=== PATIENT | male | born 1955 | race Two or more races ===

== ENCOUNTER 2018-04-15 11:48 | Inpatient (IN) | payer MEDICARE ==
[~2018-04-15] VITALS: Ht 170.2 cm; Wt 76.4 kg
[2018-04-15 12:22] VITALS: BP 131/76
[2018-04-15] MEDS: LORazepam 2 MG TABLET PO PRN ×2 (13:29→18:09)
[2018-04-15] MEDS ORDERED: PNEUMOCOCCAL VACCINE POLYVALENT 0.5 ML VIAL [PPSV23] IM ONE (13:30)
[2018-04-15 13:39] VITALS: BP 139/78
[2018-04-15] MEDS: HALOPERIDOL 5 MG TABLET PO PRN (13:59)
[2018-04-15] MEDS ORDERED: LOPERAMIDE HCL 2 MG CAPSULE PO PRN (14:30)
[2018-04-15] MEDS ORDERED: CloNIDine HCL 0.1 MG TABLET PO PRN (14:30)
[2018-04-15] MEDS ORDERED: PETROLATUM,WHITE 71 GM JELLY TP PRN (14:30)
[2018-04-15 16:00] VITALS: BP 141/83
[2018-04-15] MEDS: NICOTINE 14 MG/24 HOUR PATCH TD SCH (16:00)
[2018-04-15] MEDS: DOCUSATE SODIUM 100 MG CAPSULE PO PRN (16:32)
[2018-04-15] MEDS: ZOLPIDEM TARTRATE 10 MG TABLET PO PRN (21:12)
[2018-04-16 02:06] VITALS: BP 126/65
[2018-04-16] MEDS: LORazepam 2 MG TABLET PO PRN ×2 (07:47→12:25)
[2018-04-16 08:12] VITALS: BP 133/82
[2018-04-16 08:36] LABS: BASOPHILS % (AUTO) 1.2 % (0.0-2.0); HEMATOCRIT 42.7 % (41-53); HEMOGLOBIN 14.8 g/dL (13.5-17.5); LYMPHOCYTES # (AUTO) 1.5 K/uL (1.0-4.8); LYMPHOCYTES % (AUTO) 24.6 % (22.0-44.0); MEAN CORPUSCULAR HEMOGLOBIN 32.3 pg (26.0-34.0); MEAN CORPUSCULAR HGB CONC 34.5 G/dL (31.0-37.0); MEAN CORPUSCULAR VOLUME 94 fL (80-100); MONOCYTES # (AUTO) 0.6 K/uL (0.1-1.0); MONOCYTES % (AUTO) 9.7 % (2.0-9.0); NEUTROPHILS # (AUTO) 3.7 K/uL (1.8-7.7); NEUTROPHILS % (AUTO) 59.5 % (40.0-70.0); PLATELET COUNT (AUTO) 313 K/uL (150-450); RED BLOOD CELL COUNT(AUTO) 4.56 MIL/uL (4.50-5.90); RED CELL DISTRIBUTION WIDTH 13.9 % (11.5-14.5)
[2018-04-16 08:46] LABS: HEMOGLOBIN A1C 5.8 % (4.5-6.2)
[2018-04-16 09:04] LABS: ALANINE AMINOTRANSFERASE 26 U/L (12-78); ALBUMIN 3.6 g/dL (3.4-5.0); ALKALINE PHOSPHATASE 56 U/L (46-116); ANION GAP 4 mmol/L (8-16); ASPARTATE AMINOTRANSFERASE 16 U/L (15-37); BILIRUBIN,TOTAL 0.5 mg/dL (0.1-1.0); CALCIUM, TOTAL 8.7 mg/dL (8.8-10.5); CARBON DIOXIDE 32 mmol/L (22-29); CHLORIDE 101 mmol/L (98-107); CHOL/HDL RATIO 3.1 (4.2-7.3); CHOLESTEROL 155 mg/dL (131-200); CREATININE 0.79 mg/dL (0.60-1.30); FREE T4 (FREE THYROXINE) 1.11 ng/dL (0.76-1.46); GLOMERULAR FILTR. RATE CALC > 60 mL/min (>60); GLUCOSE,RANDOM 85 mg/dL (70-110); HDL CHOLESTEROL 50 mg/dL (40-60); LDL CHOL (CALC.) 89 mg/dL (0-130); POTASSIUM 4.3 mmol/L (3.5-5.1); SODIUM SERUM 137 mmol/L (136-145); THYROID STIMULATING HORMONE 2.34 uIU/mL (0.36-3.74); TOTAL PROTEIN, SERUM 6.5 g/dL (6.4-8.2); TRIGLYCERIDES 78 mg/dL (15-150); UREA NITROGEN, BLOOD 9 mg/dL (7-18)
[2018-04-16] MEDS ORDERED: ATENOLOL 50 MG TABLET PO SCH (11:15)
[2018-04-16 11:22] VITALS: BP 118/73
[2018-04-16] MEDS: NICOTINE 14 MG/24 HOUR PATCH TD SCH (11:50)
[2018-04-16] MEDS ORDERED: ATEN50TA PO (14:15)
[2018-04-16] MEDS ORDERED: ESCI10TA PO (14:15)
[2018-04-16] MEDS ORDERED: CLON2 PO (14:15)
[2018-04-16] MEDS ORDERED: MIRT15 PO (14:15)
[2018-04-16] MEDS ORDERED: BENZ2TAB10 PO (14:15)
[2018-04-16 16:08] VITALS: BP 137/75
[2018-04-16] MEDS: BusPIRone HCL 5 MG TABLET PO SCH (16:26)
[2018-04-16] MEDS: ESCITALOPRAM OXALATE 10 MG TABLET PO SCH (16:26)
[2018-04-16] MEDS: ATENOLOL 50 MG TABLET PO SCH (16:26)
[2018-04-17 02:16] VITALS: BP 126/66
[2018-04-17] MEDS: ATENOLOL 50 MG TABLET PO SCH (08:28)
[2018-04-17 08:29] VITALS: BP 118/82
[2018-04-17] MEDS: NICOTINE 14 MG/24 HOUR PATCH TD SCH (08:29)
[2018-04-17] MEDS: ESCITALOPRAM OXALATE 10 MG TABLET PO SCH (08:29)
[2018-04-17] MEDS: BusPIRone HCL 5 MG TABLET PO SCH ×3 (08:29→16:32)
[2018-04-17] MEDS: LORazepam 2 MG TABLET PO PRN ×2 (09:53→18:26)
[2018-04-17 16:05] VITALS: BP 140/97
[2018-04-17 18:09] VITALS: BP 140/80
[2018-04-17] MEDS: TAMSULOSIN HCL 0.4 MG CAPSULE PO SCH (19:47)
[2018-04-18 02:52] VITALS: BP 121/73
[2018-04-18] MEDS: ZOLPIDEM TARTRATE 10 MG TABLET PO PRN ×2 (02:59→20:27)
[2018-04-18 08:12] VITALS: BP 118/79
[2018-04-18] MEDS: ESCITALOPRAM OXALATE 10 MG TABLET PO SCH (08:58)
[2018-04-18] MEDS: NICOTINE 14 MG/24 HOUR PATCH TD SCH (08:59)
[2018-04-18] MEDS: BusPIRone HCL 5 MG TABLET PO SCH ×3 (08:59→16:16)
[2018-04-18] MEDS: ATENOLOL 50 MG TABLET PO SCH (08:59)
[2018-04-18] MEDS: TAMSULOSIN HCL 0.4 MG CAPSULE PO SCH ×2 (09:43→16:16)
[2018-04-18] MEDS: LORazepam 2 MG TABLET PO PRN ×2 (11:12→16:16)
[2018-04-18 16:00] VITALS: BP 107/76
[2018-04-19] MEDS: LORazepam 2 MG TABLET PO PRN ×2 (00:45→09:15)
[2018-04-19 02:40] VITALS: BP 111/64
[2018-04-19 08:33] VITALS: BP 109/65
[2018-04-19] MEDS: BusPIRone HCL 5 MG TABLET PO SCH ×3 (09:04→16:45)
[2018-04-19] MEDS: TAMSULOSIN HCL 0.4 MG CAPSULE PO SCH ×2 (09:04→16:45)
[2018-04-19] MEDS: ESCITALOPRAM OXALATE 10 MG TABLET PO SCH (09:05)
[2018-04-19] MEDS: ATENOLOL 50 MG TABLET PO SCH (09:05)
[2018-04-19] MEDS: NICOTINE 14 MG/24 HOUR PATCH TD SCH (09:09)
[2018-04-19 16:26] VITALS: BP 121/69
[2018-04-19] MEDS: ZOLPIDEM TARTRATE 10 MG TABLET PO PRN (20:47)
[2018-04-19 22:32] VITALS: BP 116/71
[2018-04-20] VITALS: BP 116/75
[2018-04-20] MEDS ORDERED: ONDANSETRON HCL 4 MG TABLET PO PRN
[2018-04-20] MEDS: LORazepam 2 MG TABLET PO PRN ×3 (01:28→14:00)
[2018-04-20 04:03] VITALS: BP 117/74
[2018-04-20] MEDS: ACETAMINOPHEN 325 MG TABLET PO PRN (04:04)
[2018-04-20] MEDS: ATENOLOL 50 MG TABLET PO SCH (08:17)
[2018-04-20] MEDS: TAMSULOSIN HCL 0.4 MG CAPSULE PO SCH ×2 (08:17→16:37)
[2018-04-20] MEDS: BusPIRone HCL 5 MG TABLET PO SCH ×3 (08:17→16:37)
[2018-04-20] MEDS: ESCITALOPRAM OXALATE 10 MG TABLET PO SCH (08:17)
[2018-04-20] MEDS: NICOTINE 14 MG/24 HOUR PATCH TD SCH (08:17)
[2018-04-20] MEDS: MAG HYDROX/AL HYDROX/SIMETH ES 30 ML SUSPENSION UDCUP PO PRN ×2 (08:21→20:41)
[2018-04-20] MEDS: BISACODYL 5 MG EC TABLET PO PRN (08:47)
[2018-04-20 08:54] VITALS: BP 108/69
[2018-04-20 16:05] VITALS: BP 120/60
[2018-04-20] MEDS ORDERED: QUEtiapine FUMARATE 25 MG TABLET PO SCH (21:00)
[2018-04-21 05:20] VITALS: BP 124/81
[2018-04-21] MEDS: LORazepam 2 MG TABLET PO PRN ×3 (05:28→18:30)
[2018-04-21] MEDS: ACETAMINOPHEN 325 MG TABLET PO PRN (06:11)
[2018-04-21 08:24] VITALS: BP 132/70
[2018-04-21] MEDS: BusPIRone HCL 5 MG TABLET PO SCH ×3 (08:43→16:36)
[2018-04-21] MEDS: ATENOLOL 50 MG TABLET PO SCH (08:43)
[2018-04-21] MEDS: TAMSULOSIN HCL 0.4 MG CAPSULE PO SCH ×2 (08:43→16:36)
[2018-04-21] MEDS: NICOTINE 14 MG/24 HOUR PATCH TD SCH (08:44)
[2018-04-21] MEDS: ESCITALOPRAM OXALATE 20 MG TABLET PO SCH (08:44)
[2018-04-21] MEDS: DOCUSATE SODIUM 100 MG CAPSULE PO PRN (12:20)
[2018-04-21 16:03] VITALS: BP 125/69
[2018-04-21] MEDS: TraZODone HCL 100 MG TABLET PO SCH (20:33)
[2018-04-22 02:40] VITALS: BP 124/72
[2018-04-22] MEDS: LORazepam 2 MG TABLET PO PRN ×4 (02:40→21:20)
[2018-04-22] MEDS: ACETAMINOPHEN 325 MG TABLET PO PRN (02:40)
[2018-04-22] MEDS: BISACODYL 5 MG EC TABLET PO PRN (04:45)
[2018-04-22] MEDS: MAGNESIUM HYDROXIDE SUSPENSION 30 ML UDCUP PO PRN (06:37)
[2018-04-22] MEDS: BusPIRone HCL 5 MG TABLET PO SCH ×3 (08:06→16:40)
[2018-04-22] MEDS: TAMSULOSIN HCL 0.4 MG CAPSULE PO SCH ×2 (08:06→16:40)
[2018-04-22] MEDS: ATENOLOL 50 MG TABLET PO SCH (08:06)
[2018-04-22] MEDS: ESCITALOPRAM OXALATE 20 MG TABLET PO SCH (08:06)
[2018-04-22] MEDS: NICOTINE 14 MG/24 HOUR PATCH TD SCH (08:08)
[2018-04-22 08:13] VITALS: BP 118/72
[2018-04-22 16:14] VITALS: BP 131/77
[2018-04-22] MEDS: TraZODone HCL 100 MG TABLET PO SCH (20:32)
[2018-04-22 21:19] VITALS: BP 119/70
[2018-04-22 23:40] VITALS: BP 116/70
[2018-04-22] MEDS: ZOLPIDEM TARTRATE 10 MG TABLET PO PRN (23:40)
[2018-04-23 00:01] VITALS: BP 116/79
[2018-04-23 05:00] VITALS: BP 136/77
[2018-04-23] MEDS: HALOPERIDOL 5 MG TABLET PO PRN (05:37)
[2018-04-23] MEDS: ATENOLOL 50 MG TABLET PO SCH (08:10)
[2018-04-23] MEDS: NICOTINE 14 MG/24 HOUR PATCH TD SCH (08:10)
[2018-04-23] MEDS: ESCITALOPRAM OXALATE 20 MG TABLET PO SCH (08:10)
[2018-04-23] MEDS: TAMSULOSIN HCL 0.4 MG CAPSULE PO SCH ×2 (08:10→16:17)
[2018-04-23] MEDS: BusPIRone HCL 5 MG TABLET PO SCH ×2 (08:10→12:54)
[2018-04-23 08:24] VITALS: BP 129/78
[2018-04-23] MEDS: LORazepam 2 MG TABLET PO PRN ×2 (09:44→14:28)
[2018-04-23 16:03] VITALS: BP_SYST 133; BP_SYST 143; BP_DIAS 75; BP_DIAS 90
[2018-04-23] MEDS: BusPIRone HCL 10 MG TABLET PO SCH (16:17)
[2018-04-23] MEDS: TraZODone HCL 150 MG TABLET PO SCH (20:06)
[2018-04-23] MEDS: ZOLPIDEM TARTRATE 10 MG TABLET PO PRN (21:55)
[2018-04-24 01:53] VITALS: BP 138/72
[2018-04-24] MEDS: LORazepam 1 MG TABLET PO PRN ×3 (01:54→18:42)
[2018-04-24 08:06] VITALS: BP 130/80
[2018-04-24] MEDS: BusPIRone HCL 10 MG TABLET PO SCH ×3 (08:11→16:28)
[2018-04-24] MEDS: ESCITALOPRAM OXALATE 20 MG TABLET PO SCH (08:11)
[2018-04-24] MEDS: ATENOLOL 50 MG TABLET PO SCH (08:11)
[2018-04-24] MEDS: TAMSULOSIN HCL 0.4 MG CAPSULE PO SCH ×2 (08:11→16:28)
[2018-04-24] MEDS: ACETAMINOPHEN 325 MG TABLET PO PRN (08:12)
[2018-04-24] MEDS: NICOTINE 14 MG/24 HOUR PATCH TD SCH (08:12)
[2018-04-24] MEDS: MAG HYDROX/AL HYDROX/SIMETH ES 30 ML SUSPENSION UDCUP PO PRN ×2 (15:01→22:45)
[2018-04-24 16:05] VITALS: BP 131/70
[2018-04-24] MEDS: TraZODone HCL 150 MG TABLET PO SCH (20:31)
[2018-04-24] MEDS: ZOLPIDEM TARTRATE 10 MG TABLET PO PRN (20:54)
[2018-04-25 05:40] VITALS: BP 120/81
[2018-04-25] MEDS: LORazepam 1 MG TABLET PO PRN ×4 (05:59→23:50)
[2018-04-25] MEDS: TAMSULOSIN HCL 0.4 MG CAPSULE PO SCH ×2 (08:05→16:34)
[2018-04-25] MEDS: ESCITALOPRAM OXALATE 20 MG TABLET PO SCH (08:05)
[2018-04-25] MEDS: BusPIRone HCL 10 MG TABLET PO SCH (08:06)
[2018-04-25] MEDS: ATENOLOL 50 MG TABLET PO SCH (08:06)
[2018-04-25] MEDS: NICOTINE 14 MG/24 HOUR PATCH TD SCH (08:06)
[2018-04-25 08:07] VITALS: BP 129/70
[2018-04-25] MEDS: BusPIRone HCL 15 MG TABLET PO SCH ×2 (12:37→16:34)
[2018-04-25] MEDS: MAG HYDROX/AL HYDROX/SIMETH ES 30 ML SUSPENSION UDCUP PO PRN (12:59)
[2018-04-25 16:17] VITALS: BP 133/95
[2018-04-25] MEDS: TraZODone HCL 150 MG TABLET PO SCH (20:32)
[2018-04-25] MEDS: ZOLPIDEM TARTRATE 10 MG TABLET PO PRN (23:50)
[2018-04-26 00:02] VITALS: BP 126/88
[2018-04-26] MEDS: NICOTINE 14 MG/24 HOUR PATCH TD SCH (08:10)
[2018-04-26] MEDS: BusPIRone HCL 15 MG TABLET PO SCH ×3 (08:10→17:00)
[2018-04-26] MEDS: ESCITALOPRAM OXALATE 20 MG TABLET PO SCH (08:10)
[2018-04-26] MEDS: TAMSULOSIN HCL 0.4 MG CAPSULE PO SCH ×2 (08:10→17:00)
[2018-04-26] MEDS: ATENOLOL 50 MG TABLET PO SCH (08:10)
[2018-04-26 08:36] VITALS: BP 124/72
[2018-04-26] MEDS: PROPRANOLOL HCL 10 MG TABLET PO SCH ×3 (09:10→17:01)
[2018-04-26] MEDS: LORazepam 1 MG TABLET PO PRN (10:28)
[2018-04-26 12:40] VITALS: BP 120/70
[2018-04-26] MEDS: MAG HYDROX/AL HYDROX/SIMETH ES 30 ML SUSPENSION UDCUP PO PRN (13:02)
[2018-04-26 16:02] VITALS: BP 132/80
[2018-04-26] MEDS: TraZODone HCL 150 MG TABLET PO SCH (20:10)
[2018-04-26] MEDS: ZOLPIDEM TARTRATE 10 MG TABLET PO PRN (21:05)
[2018-04-27] VITALS (7 sets, daily range): BP systolic 102–138; BP diastolic 64–74
[2018-04-27] MEDS: LORazepam 1 MG TABLET PO PRN ×3 (02:47→11:07)
[2018-04-27] MEDS: ACETAMINOPHEN 325 MG TABLET PO PRN ×2 (06:25→15:21)
[2018-04-27] MEDS: TAMSULOSIN HCL 0.4 MG CAPSULE PO SCH ×2 (08:12→16:30)
[2018-04-27] MEDS: BusPIRone HCL 15 MG TABLET PO SCH ×3 (08:12→16:30)
[2018-04-27] MEDS: ATENOLOL 50 MG TABLET PO SCH (08:12)
[2018-04-27] MEDS: PROPRANOLOL HCL 10 MG TABLET PO SCH ×3 (08:12→16:30)
[2018-04-27] MEDS: ESCITALOPRAM OXALATE 20 MG TABLET PO SCH (08:13)
[2018-04-27] MEDS: NICOTINE 14 MG/24 HOUR PATCH TD SCH (08:13)
[2018-04-27] MEDS: TraZODone HCL 150 MG TABLET PO SCH (20:34)
[2018-04-28 00:35] VITALS: BP 108/72
[2018-04-28] MEDS: ZOLPIDEM TARTRATE 10 MG TABLET PO PRN ×2 (00:38→20:58)
[2018-04-28] MEDS: ATENOLOL 50 MG TABLET PO SCH (08:08)
[2018-04-28] MEDS: ESCITALOPRAM OXALATE 20 MG TABLET PO SCH (08:08)
[2018-04-28] MEDS: TAMSULOSIN HCL 0.4 MG CAPSULE PO SCH ×2 (08:08→16:43)
[2018-04-28] MEDS: PROPRANOLOL HCL 10 MG TABLET PO SCH ×3 (08:08→16:42)
[2018-04-28] MEDS: BusPIRone HCL 15 MG TABLET PO SCH ×3 (08:08→16:42)
[2018-04-28] MEDS: NICOTINE 14 MG/24 HOUR PATCH TD SCH (08:09)
[2018-04-28 08:19] VITALS: BP 132/79
[2018-04-28] MEDS: LORazepam 1 MG TABLET PO PRN ×2 (09:30→17:37)
[2018-04-28 12:39] VITALS: BP 132/78
[2018-04-28] MEDS: ACETAMINOPHEN 325 MG TABLET PO PRN (12:39)
[2018-04-28] MEDS: MAG HYDROX/AL HYDROX/SIMETH ES 30 ML SUSPENSION UDCUP PO PRN ×2 (13:04→18:04)
[2018-04-28 16:13] VITALS: BP 118/73
[2018-04-28] MEDS: TraZODone HCL 150 MG TABLET PO SCH (20:28)
[2018-04-29 03:42] VITALS: BP 120/81
[2018-04-29] MEDS: LORazepam 1 MG TABLET PO PRN ×3 (03:44→20:30)
[2018-04-29 08:16] VITALS: BP 119/74
[2018-04-29] MEDS: ATENOLOL 50 MG TABLET PO SCH (08:31)
[2018-04-29] MEDS: BusPIRone HCL 15 MG TABLET PO SCH ×3 (08:31→16:36)
[2018-04-29] MEDS: PROPRANOLOL HCL 10 MG TABLET PO SCH ×3 (08:31→16:36)
[2018-04-29] MEDS: TAMSULOSIN HCL 0.4 MG CAPSULE PO SCH ×2 (08:31→16:36)
[2018-04-29] MEDS: ESCITALOPRAM OXALATE 20 MG TABLET PO SCH (08:31)
[2018-04-29] MEDS: NICOTINE 14 MG/24 HOUR PATCH TD SCH (08:32)
[2018-04-29 13:00] VITALS: BP 135/77
[2018-04-29 16:08] VITALS: BP 122/84
[2018-04-29] MEDS: MAG HYDROX/AL HYDROX/SIMETH ES 30 ML SUSPENSION UDCUP PO PRN (16:49)
[2018-04-29] MEDS: TraZODone HCL 150 MG TABLET PO SCH (20:30)
[2018-04-30 04:04] VITALS: BP 145/72
[2018-04-30] MEDS: LORazepam 1 MG TABLET PO PRN ×2 (04:07→18:02)
[2018-04-30 08:25] VITALS: BP 116/70
[2018-04-30] MEDS: ESCITALOPRAM OXALATE 20 MG TABLET PO SCH (08:41)
[2018-04-30] MEDS: TAMSULOSIN HCL 0.4 MG CAPSULE PO SCH ×2 (08:41→16:30)
[2018-04-30] MEDS: NICOTINE 14 MG/24 HOUR PATCH TD SCH (08:41)
[2018-04-30] MEDS: PROPRANOLOL HCL 10 MG TABLET PO SCH ×3 (08:41→16:30)
[2018-04-30] MEDS: BusPIRone HCL 15 MG TABLET PO SCH ×3 (08:41→16:30)
[2018-04-30] MEDS: ATENOLOL 50 MG TABLET PO SCH (08:41)
[2018-04-30] MEDS: MAG HYDROX/AL HYDROX/SIMETH ES 30 ML SUSPENSION UDCUP PO PRN (09:13)
[2018-04-30 12:50] VITALS: BP 131/80
[2018-04-30 17:47] VITALS: BP 135/87
[2018-04-30] MEDS: TraZODone HCL 150 MG TABLET PO SCH (20:38)
[2018-05-01 00:02] VITALS: BP 132/54
[2018-05-01] MEDS: ZOLPIDEM TARTRATE 10 MG TABLET PO PRN ×2 (00:08→21:44)
[2018-05-01] MEDS: ESCITALOPRAM OXALATE 20 MG TABLET PO SCH (08:26)
[2018-05-01] MEDS: TAMSULOSIN HCL 0.4 MG CAPSULE PO SCH ×2 (08:26→16:01)
[2018-05-01] MEDS: PROPRANOLOL HCL 10 MG TABLET PO SCH ×3 (08:26→16:01)
[2018-05-01] MEDS: BusPIRone HCL 15 MG TABLET PO SCH ×3 (08:26→16:01)
[2018-05-01] MEDS: ATENOLOL 50 MG TABLET PO SCH (08:26)
[2018-05-01 08:27] VITALS: BP 112/72
[2018-05-01] MEDS: NICOTINE 14 MG/24 HOUR PATCH TD SCH (08:27)
[2018-05-01] MEDS: LORazepam 1 MG TABLET PO PRN ×2 (10:50→17:26)
[2018-05-01 12:55] VITALS: BP 115/70
[2018-05-01 16:20] VITALS: BP 121/84
[2018-05-01 17:25] VITALS: BP 135/77
[2018-05-01] MEDS: TraZODone HCL 150 MG TABLET PO SCH (20:14)
[2018-05-02 02:50] VITALS: BP 125/69
[2018-05-02] MEDS: MAGNESIUM HYDROXIDE SUSPENSION 30 ML UDCUP PO PRN (06:43)
[2018-05-02] MEDS: PROPRANOLOL HCL 10 MG TABLET PO SCH ×3 (08:28→16:21)
[2018-05-02] MEDS: BusPIRone HCL 15 MG TABLET PO SCH ×3 (08:28→16:21)
[2018-05-02] MEDS: ESCITALOPRAM OXALATE 20 MG TABLET PO SCH (08:28)
[2018-05-02] MEDS: ATENOLOL 50 MG TABLET PO SCH (08:28)
[2018-05-02] MEDS: TAMSULOSIN HCL 0.4 MG CAPSULE PO SCH ×2 (08:28→16:21)
[2018-05-02] MEDS: NICOTINE 14 MG/24 HOUR PATCH TD SCH (08:29)
[2018-05-02 08:47] VITALS: BP 115/76
[2018-05-02] MEDS: LORazepam 1 MG TABLET PO PRN ×2 (09:37→16:21)
[2018-05-02 12:35] VITALS: BP 120/78
[2018-05-02 16:15] VITALS: BP 121/75
[2018-05-02] MEDS: TraZODone HCL 150 MG TABLET PO SCH (20:16)
[2018-05-02] MEDS: ZOLPIDEM TARTRATE 10 MG TABLET PO PRN (20:41)
[2018-05-03 03:46] VITALS: BP 107/64
[2018-05-03] MEDS: ACETAMINOPHEN 325 MG TABLET PO PRN (03:46)
[2018-05-03] MEDS: LORazepam 1 MG TABLET PO PRN ×2 (04:08→15:46)
[2018-05-03 08:38] VITALS: BP 115/71
[2018-05-03] MEDS: BusPIRone HCL 15 MG TABLET PO SCH ×3 (09:00→16:56)
[2018-05-03] MEDS: ATENOLOL 50 MG TABLET PO SCH (09:00)
[2018-05-03] MEDS: TAMSULOSIN HCL 0.4 MG CAPSULE PO SCH ×2 (09:01→16:56)
[2018-05-03] MEDS: ESCITALOPRAM OXALATE 20 MG TABLET PO SCH (09:01)
[2018-05-03] MEDS: PROPRANOLOL HCL 10 MG TABLET PO SCH ×3 (09:01→16:56)
[2018-05-03] MEDS: NICOTINE 14 MG/24 HOUR PATCH TD SCH (09:03)
[2018-05-03 12:48] VITALS: BP 125/71
[2018-05-03 16:16] VITALS: BP 140/84
[2018-05-03] MEDS: TraZODone HCL 150 MG TABLET PO SCH (20:18)
[2018-05-03] MEDS: ZOLPIDEM TARTRATE 10 MG TABLET PO PRN (21:57)
[2018-05-04 01:52] VITALS: BP 111/60
[2018-05-04 08:12] VITALS: BP 126/75
[2018-05-04] MEDS: PROPRANOLOL HCL 10 MG TABLET PO SCH ×3 (08:17→16:21)
[2018-05-04] MEDS: ESCITALOPRAM OXALATE 20 MG TABLET PO SCH (08:17)
[2018-05-04] MEDS: ATENOLOL 50 MG TABLET PO SCH (08:17)
[2018-05-04] MEDS: TAMSULOSIN HCL 0.4 MG CAPSULE PO SCH ×2 (08:17→16:21)
[2018-05-04] MEDS: BusPIRone HCL 15 MG TABLET PO SCH ×3 (08:17→16:21)
[2018-05-04] MEDS: NICOTINE 14 MG/24 HOUR PATCH TD SCH (08:18)
[2018-05-04] MEDS: MAG HYDROX/AL HYDROX/SIMETH ES 30 ML SUSPENSION UDCUP PO PRN ×2 (10:34→18:08)
[2018-05-04 12:35] VITALS: BP 110/73
[2018-05-04] MEDS: LORazepam 1 MG TABLET PO PRN (13:36)
[2018-05-04 16:10] VITALS: BP 138/71
[2018-05-04] MEDS: TraZODone HCL 150 MG TABLET PO SCH (20:13)
[2018-05-04] MEDS: ZOLPIDEM TARTRATE 10 MG TABLET PO PRN (21:10)
[2018-05-05 02:53] VITALS: BP 117/70
[2018-05-05] MEDS: ACETAMINOPHEN 325 MG TABLET PO PRN ×2 (03:06→12:46)
[2018-05-05] MEDS: LORazepam 1 MG TABLET PO PRN ×2 (04:43→11:50)
[2018-05-05] MEDS: ATENOLOL 50 MG TABLET PO SCH (08:51)
[2018-05-05] MEDS: PROPRANOLOL HCL 10 MG TABLET PO SCH ×3 (08:51→16:54)
[2018-05-05] MEDS: BusPIRone HCL 15 MG TABLET PO SCH ×3 (08:51→16:54)
[2018-05-05] MEDS: TAMSULOSIN HCL 0.4 MG CAPSULE PO SCH ×2 (08:51→16:54)
[2018-05-05] MEDS: NICOTINE 14 MG/24 HOUR PATCH TD SCH (08:51)
[2018-05-05] MEDS: ESCITALOPRAM OXALATE 20 MG TABLET PO SCH (08:51)
[2018-05-05 08:58] VITALS: BP 124/80
[2018-05-05 12:46] VITALS: BP 134/74
[2018-05-05] MEDS: MAG HYDROX/AL HYDROX/SIMETH ES 30 ML SUSPENSION UDCUP PO PRN (14:27)
[2018-05-05 16:43] VITALS: BP 123/74
[2018-05-05] MEDS: MIRTAZAPINE 30 MG TABLET PO SCH (20:11)
[2018-05-05] MEDS: TraZODone HCL 150 MG TABLET PO SCH (20:11)
[2018-05-06 05:30] VITALS: BP 112/72
[2018-05-06] MEDS: TAMSULOSIN HCL 0.4 MG CAPSULE PO SCH ×2 (08:11→16:51)
[2018-05-06] MEDS: BusPIRone HCL 15 MG TABLET PO SCH ×3 (08:11→16:51)
[2018-05-06] MEDS: PROPRANOLOL HCL 10 MG TABLET PO SCH ×3 (08:11→16:51)
[2018-05-06] MEDS: ATENOLOL 50 MG TABLET PO SCH (08:12)
[2018-05-06] MEDS: ESCITALOPRAM OXALATE 20 MG TABLET PO SCH (08:12)
[2018-05-06] MEDS: NICOTINE 14 MG/24 HOUR PATCH TD SCH (08:14)
[2018-05-06 08:34] VITALS: BP 126/79
[2018-05-06] MEDS: LORazepam 1 MG TABLET PO PRN ×2 (10:05→16:51)
[2018-05-06 12:55] VITALS: BP 119/72
[2018-05-06 16:01] VITALS: BP 126/77
[2018-05-06] MEDS: HALOPERIDOL 5 MG TABLET PO PRN (16:50)
[2018-05-06] MEDS: MIRTAZAPINE 30 MG TABLET PO SCH (20:07)
[2018-05-06] MEDS: ZOLPIDEM TARTRATE 10 MG TABLET PO PRN (20:07)
[2018-05-06] MEDS: TraZODone HCL 150 MG TABLET PO SCH (20:07)
[2018-05-07 06:32] VITALS: BP 124/78
[2018-05-07] MEDS: TAMSULOSIN HCL 0.4 MG CAPSULE PO SCH ×2 (08:16→17:00)
[2018-05-07] MEDS: PROPRANOLOL HCL 10 MG TABLET PO SCH ×3 (08:16→17:00)
[2018-05-07] MEDS: ESCITALOPRAM OXALATE 20 MG TABLET PO SCH (08:16)
[2018-05-07] MEDS: BusPIRone HCL 15 MG TABLET PO SCH ×3 (08:16→17:00)
[2018-05-07] MEDS: ATENOLOL 50 MG TABLET PO SCH (08:16)
[2018-05-07] MEDS: NICOTINE 14 MG/24 HOUR PATCH TD SCH (08:18)
[2018-05-07 08:24] VITALS: BP 130/81
[2018-05-07] MEDS: LORazepam 1 MG TABLET PO PRN (10:07)
[2018-05-07 12:35] VITALS: BP 118/72
[2018-05-07 16:02] VITALS: BP 126/88
[2018-05-07 16:30] VITALS: BP 126/91
[2018-05-07] MEDS: LORazepam 0.5 MG TABLET PO PRN (17:55)
[2018-05-07] MEDS: TraZODone HCL 150 MG TABLET PO SCH (20:23)
[2018-05-07] MEDS: MIRTAZAPINE 30 MG TABLET PO SCH (20:23)
[2018-05-08 02:54] VITALS: BP 127/74
[2018-05-08] MEDS: LORazepam 0.5 MG TABLET PO PRN ×2 (03:43→10:42)
[2018-05-08 08:00] VITALS: BP 143/75
[2018-05-08] MEDS: ESCITALOPRAM OXALATE 20 MG TABLET PO SCH (08:31)
[2018-05-08] MEDS: BusPIRone HCL 15 MG TABLET PO SCH ×3 (08:31→16:45)
[2018-05-08] MEDS: PROPRANOLOL HCL 10 MG TABLET PO SCH ×3 (08:31→16:45)
[2018-05-08] MEDS: NICOTINE 14 MG/24 HOUR PATCH TD SCH (08:31)
[2018-05-08] MEDS: TAMSULOSIN HCL 0.4 MG CAPSULE PO SCH ×2 (08:31→16:45)
[2018-05-08] MEDS: ATENOLOL 50 MG TABLET PO SCH (08:31)
[2018-05-08 10:28] VITALS: BP 136/78
[2018-05-08] MEDS: ACETAMINOPHEN 325 MG TABLET PO PRN (10:28)
[2018-05-08 12:50] VITALS: BP 122/79
[2018-05-08 16:17] VITALS: BP 126/83
[2018-05-08] MEDS: MIRTAZAPINE 30 MG TABLET PO SCH (20:38)
[2018-05-08] MEDS: TraZODone HCL 150 MG TABLET PO SCH (20:38)
[2018-05-09 04:29] VITALS: BP 106/61
[2018-05-09] MEDS: LORazepam 0.5 MG TABLET PO PRN ×3 (06:41→17:22)
[2018-05-09 08:34] VITALS: BP 139/91
[2018-05-09] MEDS: TAMSULOSIN HCL 0.4 MG CAPSULE PO SCH ×2 (08:58→16:45)
[2018-05-09] MEDS: BusPIRone HCL 15 MG TABLET PO SCH ×3 (08:58→16:45)
[2018-05-09] MEDS: ESCITALOPRAM OXALATE 20 MG TABLET PO SCH (08:58)
[2018-05-09] MEDS: ATENOLOL 50 MG TABLET PO SCH (08:58)
[2018-05-09] MEDS: PROPRANOLOL HCL 10 MG TABLET PO SCH ×3 (08:58→16:45)
[2018-05-09] MEDS: NICOTINE 14 MG/24 HOUR PATCH TD SCH (08:59)
[2018-05-09 12:20] VITALS: BP 116/71
[2018-05-09 16:06] VITALS: BP 133/87
[2018-05-09] MEDS: MIRTAZAPINE 30 MG TABLET PO SCH (20:29)
[2018-05-09] MEDS: TraZODone HCL 150 MG TABLET PO SCH (20:29)
[2018-05-10 06:30] VITALS: BP 132/88
[2018-05-10 08:22] VITALS: BP 127/86
[2018-05-10] MEDS: ESCITALOPRAM OXALATE 20 MG TABLET PO SCH (08:36)
[2018-05-10] MEDS: PROPRANOLOL HCL 10 MG TABLET PO SCH ×3 (08:36→16:45)
[2018-05-10] MEDS: BusPIRone HCL 15 MG TABLET PO SCH ×3 (08:36→16:45)
[2018-05-10] MEDS: TAMSULOSIN HCL 0.4 MG CAPSULE PO SCH ×2 (08:36→16:45)
[2018-05-10] MEDS: ATENOLOL 50 MG TABLET PO SCH (08:36)
[2018-05-10] MEDS: NICOTINE 14 MG/24 HOUR PATCH TD SCH (08:36)
[2018-05-10] MEDS: MAG HYDROX/AL HYDROX/SIMETH ES 30 ML SUSPENSION UDCUP PO PRN (09:56)
[2018-05-10] MEDS: LORazepam 0.5 MG TABLET PO PRN (11:52)
[2018-05-10 12:35] VITALS: BP 115/63
[2018-05-10 16:09] VITALS: BP 122/69
[2018-05-10] MEDS: MIRTAZAPINE 30 MG TABLET PO SCH (20:04)
[2018-05-10] MEDS: TraZODone HCL 150 MG TABLET PO SCH (20:04)
[2018-05-11 01:33] VITALS: BP 108/68
[2018-05-11] MEDS: ZOLPIDEM TARTRATE 10 MG TABLET PO PRN ×2 (01:41→21:11)
[2018-05-11 06:25] VITALS: BP 113/69
[2018-05-11] MEDS: LORazepam 0.5 MG TABLET PO PRN ×2 (06:47→14:50)
[2018-05-11 08:10] VITALS: BP 122/87
[2018-05-11] MEDS: ESCITALOPRAM OXALATE 20 MG TABLET PO SCH (08:11)
[2018-05-11] MEDS: ATENOLOL 50 MG TABLET PO SCH (08:11)
[2018-05-11] MEDS: PROPRANOLOL HCL 10 MG TABLET PO SCH ×3 (08:11→16:45)
[2018-05-11] MEDS: TAMSULOSIN HCL 0.4 MG CAPSULE PO SCH ×2 (08:11→16:45)
[2018-05-11] MEDS: NICOTINE 14 MG/24 HOUR PATCH TD SCH (08:11)
[2018-05-11] MEDS: BusPIRone HCL 15 MG TABLET PO SCH ×3 (08:11→16:45)
[2018-05-11 12:50] VITALS: BP 121/72
[2018-05-11 16:08] VITALS: BP 119/76
[2018-05-11] MEDS: MAG HYDROX/AL HYDROX/SIMETH ES 30 ML SUSPENSION UDCUP PO PRN (19:12)
[2018-05-11] MEDS: MIRTAZAPINE 30 MG TABLET PO SCH (20:09)
[2018-05-11] MEDS: TraZODone HCL 150 MG TABLET PO SCH (20:09)
[2018-05-12 04:59] VITALS: BP 128/89
[2018-05-12] MEDS: LORazepam 0.5 MG TABLET PO PRN (05:01)
[2018-05-12] MEDS: BusPIRone HCL 15 MG TABLET PO SCH ×3 (08:51→16:16)
[2018-05-12] MEDS: ESCITALOPRAM OXALATE 20 MG TABLET PO SCH (08:51)
[2018-05-12] MEDS: TAMSULOSIN HCL 0.4 MG CAPSULE PO SCH ×2 (08:51→16:16)
[2018-05-12] MEDS: ATENOLOL 50 MG TABLET PO SCH (08:53)
[2018-05-12] MEDS: NICOTINE 14 MG/24 HOUR PATCH TD SCH (08:55)
[2018-05-12] MEDS: PROPRANOLOL HCL 10 MG TABLET PO SCH ×3 (09:01→16:17)
[2018-05-12] MEDS ORDERED: ESCI20TA36 PO (09:05)
[2018-05-12] MEDS ORDERED: PROP10TA72 PO (09:05)
[2018-05-12] MEDS ORDERED: TRAZ150 PO (09:05)
[2018-05-12] MEDS ORDERED: MIRT30 PO (09:05)
[2018-05-12] MEDS ORDERED: TAMS-1 PO (15:59)
== END 2018-05-12 18:30 | disposition home or self-care (01) | DRG 885 ==
LOC: B2X 12:46
DX: F33.2 Major depressive disorder, recurrent severe without psychotic features (principal); R45.851 Suicidal ideations; F25.1 Schizoaffective disorder, depressive type; E83.51 Hypocalcemia; F41.1 Generalized anxiety disorder; G47.00 Insomnia, unspecified; I10 Essential (primary) hypertension; K59.00 Constipation, unspecified; N40.0 Benign prostatic hyperplasia without lower urinary tract symptoms; Z79.899 Other long term (current) drug therapy
CPT/HCPCS: 83036; 84439; 84443; 87081; 90686; 90732; Q0162

== ENCOUNTER 2018-06-30 14:40 | Inpatient (IN) | payer MEDICARE ==
[~2018-06-30] VITALS: Ht 170.2 cm; Wt 81.6 kg
[~2018-06-30 14:40] MED LIST: ATEN50TA PO; ESCI20TA36 PO; MIRT30 PO; PROP10TA72 PO; TAMS-1 PO; TRAZ150 PO
[2018-06-30] MEDS ORDERED: QUEtiapine FUMARATE 100 MG TABLET PO PRN (16:15)
[2018-06-30 16:50] VITALS: BP 131/81
[2018-06-30] MEDS ORDERED: -PHARMACY VACCINE NOTE- MISC ONE (17:15)
[2018-06-30] MEDS ORDERED: GuaiFENesin/D-METHORPHAN [SUGAR-FREE] 200-20MG/10 ML SYRUP UDCUP PO PRN (17:30)
[2018-06-30] MEDS ORDERED: HydrOXYzine PAMOATE 50 MG CAPSULE PO PRN (17:30)
[2018-06-30] MEDS: LORazepam 1 MG TABLET PO PRN (17:52)
[2018-06-30] MEDS: MIRTAZAPINE 15 MG TABLET PO SCH (20:06)
[2018-06-30] MEDS: TAMSULOSIN HCL 0.4 MG CAPSULE PO SCH (20:06)
[2018-07-01 02:02] VITALS: BP 126/72
[2018-07-01 08:00] VITALS: BP 112/70
[2018-07-01] MEDS: DULoxetine HCL 20 MG CAPSULE PO SCH (08:06)
[2018-07-01] MEDS: FOLIC ACID 1 MG TABLET PO SCH (08:06)
[2018-07-01] MEDS: TAMSULOSIN HCL 0.4 MG CAPSULE PO SCH ×2 (08:06→16:40)
[2018-07-01] MEDS: MULTIVITAMINS WITH MINERALS, THERAPEUTIC TABLET PO SCH (08:06)
[2018-07-01] MEDS: THIAMINE HCL 100 MG TABLET PO SCH ×2 (08:07→16:40)
[2018-07-01 08:22] LABS: BASOPHILS % (AUTO) 0.8 % (0.0-2.0); EOSINOPHILS % (AUTO) 4.7 % (1.0-6.0); HEMATOCRIT 39.4 % (41-53); HEMOGLOBIN 13.5 g/dL (13.5-17.5); LYMPHOCYTES # (AUTO) 1.3 K/uL (1.0-4.8); MEAN CORPUSCULAR HEMOGLOBIN 32.2 pg (26.0-34.0); MEAN CORPUSCULAR HGB CONC 34.4 G/dL (31.0-37.0); MEAN CORPUSCULAR VOLUME 94 fL (80-100); MONOCYTES # (AUTO) 0.6 K/uL (0.1-1.0); MONOCYTES % (AUTO) 11.8 % (2.0-9.0); NEUTROPHILS # (AUTO) 2.9 K/uL (1.8-7.7); NEUTROPHILS % (AUTO) 56.7 % (40.0-70.0); PLATELET COUNT (AUTO) 298 K/uL (150-450); RED BLOOD CELL COUNT(AUTO) 4.21 MIL/uL (4.50-5.90); RED CELL DISTRIBUTION WIDTH 13.7 % (11.5-14.5)
[2018-07-01 08:55] LABS: ALANINE AMINOTRANSFERASE 21 U/L (12-78); ALBUMIN 3.5 g/dL (3.4-5.0); ALKALINE PHOSPHATASE 70 U/L (46-116); ANION GAP 5 mmol/L (8-16); ASPARTATE AMINOTRANSFERASE 16 U/L (15-37); BILIRUBIN,TOTAL 0.5 mg/dL (0.1-1.0); CALCIUM, TOTAL 8.7 mg/dL (8.8-10.5); CARBON DIOXIDE 32 mmol/L (22-29); CHLORIDE 102 mmol/L (98-107); CHOL/HDL RATIO 2.4 (4.2-7.3); CHOLESTEROL 115 mg/dL (131-200); GLOMERULAR FILTR. RATE CALC > 60 mL/min (>60); GLUCOSE,RANDOM 95 mg/dL (70-110); HDL CHOLESTEROL 47 mg/dL (40-60); LDL CHOL (CALC.) 57 mg/dL (0-130); POTASSIUM 3.7 mmol/L (3.5-5.1); SODIUM SERUM 139 mmol/L (136-145); THYROID STIMULATING HORMONE 1.53 uIU/mL (0.36-3.74); TOTAL PROTEIN, SERUM 6.8 g/dL (6.4-8.2); TRIGLYCERIDES 54 mg/dL (15-150); UREA NITROGEN, BLOOD 9 mg/dL (7-18)
[2018-07-01 09:01] LABS: HEMOGLOBIN A1C 5.6 % (4.5-6.2)
[2018-07-01] MEDS: LORazepam 1 MG TABLET PO PRN ×3 (10:07→16:56)
[2018-07-01 16:03] VITALS: BP 111/87
[2018-07-01] MEDS: MIRTAZAPINE 15 MG TABLET PO SCH (20:24)
[2018-07-02 01:08] VITALS: BP 110/68
[2018-07-02] MEDS: ACETAMINOPHEN 325 MG TABLET PO PRN ×4 (01:09→10:11)
[2018-07-02] MEDS: LORazepam 1 MG TABLET PO PRN ×3 (01:09→16:20)
[2018-07-02] MEDS: ZOLPIDEM TARTRATE 10 MG TABLET PO PRN ×2 (02:18→20:17)
[2018-07-02 05:53] VITALS: BP 112/72
[2018-07-02 08:03] VITALS: BP 138/80
[2018-07-02] MEDS: THIAMINE HCL 100 MG TABLET PO SCH ×2 (08:27→16:20)
[2018-07-02] MEDS: MULTIVITAMINS WITH MINERALS, THERAPEUTIC TABLET PO SCH (08:27)
[2018-07-02] MEDS: FOLIC ACID 1 MG TABLET PO SCH (08:27)
[2018-07-02] MEDS: TAMSULOSIN HCL 0.4 MG CAPSULE PO SCH ×2 (08:27→16:20)
[2018-07-02] MEDS: DULoxetine HCL 20 MG CAPSULE PO SCH (08:27)
[2018-07-02 16:23] VITALS: BP 121/77
[2018-07-02] MEDS: MIRTAZAPINE 30 MG TABLET PO SCH (20:18)
[2018-07-03] MEDS ORDERED: AMOX TR/POT CLAV 500 MG/125 MG TABLET PO SCH
[2018-07-03 05:34] VITALS: BP 132/82
[2018-07-03] MEDS: THIAMINE HCL 100 MG TABLET PO SCH ×2 (08:18→16:31)
[2018-07-03] MEDS: FOLIC ACID 1 MG TABLET PO SCH (08:18)
[2018-07-03] MEDS: MULTIVITAMINS WITH MINERALS, THERAPEUTIC TABLET PO SCH (08:18)
[2018-07-03] MEDS: TAMSULOSIN HCL 0.4 MG CAPSULE PO SCH ×2 (08:18→16:31)
[2018-07-03 08:21] VITALS: BP 131/88
[2018-07-03] MEDS: ACETAMINOPHEN 325 MG TABLET PO PRN (08:21)
[2018-07-03 08:23] VITALS: BP 131/88
[2018-07-03] MEDS ORDERED: DULoxetine HCL 30 MG CAPSULE PO SCH (09:00)
[2018-07-03] MEDS: LORazepam 1 MG TABLET PO PRN ×2 (10:21→18:03)
[2018-07-03 15:53] VITALS: BP 121/78
[2018-07-03 16:01] VITALS: BP 121/78
[2018-07-03] MEDS: MIRTAZAPINE 30 MG TABLET PO SCH (20:27)
[2018-07-03] MEDS: ZOLPIDEM TARTRATE 10 MG TABLET PO PRN (20:47)
[2018-07-04 01:45] VITALS: BP 114/78
[2018-07-04] MEDS: ACETAMINOPHEN 325 MG TABLET PO PRN ×2 (01:49→10:25)
[2018-07-04 07:59] VITALS: BP 126/67
[2018-07-04] MEDS: MULTIVITAMINS WITH MINERALS, THERAPEUTIC TABLET PO SCH (08:10)
[2018-07-04] MEDS: DULoxetine HCL 20 MG CAPSULE PO SCH (08:10)
[2018-07-04] MEDS: FOLIC ACID 1 MG TABLET PO SCH (08:10)
[2018-07-04] MEDS: THIAMINE HCL 100 MG TABLET PO SCH ×2 (08:11→16:23)
[2018-07-04] MEDS: TAMSULOSIN HCL 0.4 MG CAPSULE PO SCH ×2 (08:11→16:23)
[2018-07-04 09:14] VITALS: BP 126/68
[2018-07-04 10:25] VITALS: BP 118/72
[2018-07-04] MEDS: LORazepam 1 MG TABLET PO PRN (11:43)
[2018-07-04 16:01] VITALS: BP 124/82
[2018-07-04] MEDS: MIRTAZAPINE 30 MG TABLET PO SCH (20:31)
[2018-07-04] MEDS: ZOLPIDEM TARTRATE 10 MG TABLET PO PRN (20:51)
[2018-07-05 06:23] VITALS: BP 122/76
[2018-07-05] MEDS: LORazepam 1 MG TABLET PO PRN ×2 (07:40→15:47)
[2018-07-05 08:05] VITALS: BP 111/74
[2018-07-05] MEDS: THIAMINE HCL 100 MG TABLET PO SCH ×2 (08:07→16:02)
[2018-07-05] MEDS: TAMSULOSIN HCL 0.4 MG CAPSULE PO SCH ×2 (08:07→16:02)
[2018-07-05] MEDS: DULoxetine HCL 20 MG CAPSULE PO SCH (08:07)
[2018-07-05] MEDS: FOLIC ACID 1 MG TABLET PO SCH (08:07)
[2018-07-05] MEDS: MULTIVITAMINS WITH MINERALS, THERAPEUTIC TABLET PO SCH (08:07)
[2018-07-05] MEDS: MAG HYDROX/AL HYDROX/SIMETH ES 30 ML SUSPENSION UDCUP PO PRN (09:05)
[2018-07-05 16:02] VITALS: BP 119/78
[2018-07-05] MEDS: MIRTAZAPINE 30 MG TABLET PO SCH (20:04)
[2018-07-05] MEDS: ZOLPIDEM TARTRATE 10 MG TABLET PO PRN (21:01)
[2018-07-06 01:22] VITALS: BP 120/81
[2018-07-06] MEDS: LORazepam 1 MG TABLET PO PRN ×3 (01:26→14:03)
[2018-07-06 08:01] VITALS: BP 123/88
[2018-07-06] MEDS: TAMSULOSIN HCL 0.4 MG CAPSULE PO SCH ×2 (08:15→16:11)
[2018-07-06] MEDS: FOLIC ACID 1 MG TABLET PO SCH (08:15)
[2018-07-06] MEDS: THIAMINE HCL 100 MG TABLET PO SCH ×2 (08:15→16:11)
[2018-07-06] MEDS: DULoxetine HCL 60 MG CAPSULE PO SCH (08:15)
[2018-07-06] MEDS: MULTIVITAMINS WITH MINERALS, THERAPEUTIC TABLET PO SCH (08:15)
[2018-07-06] MEDS: ACETAMINOPHEN 325 MG TABLET PO PRN (08:28)
[2018-07-06] MEDS: MAGNESIUM HYDROXIDE SUSPENSION 30 ML UDCUP PO PRN (12:01)
[2018-07-06 16:01] VITALS: BP 117/81
[2018-07-06] MEDS: MAG HYDROX/AL HYDROX/SIMETH ES 30 ML SUSPENSION UDCUP PO PRN (16:12)
[2018-07-06] MEDS: MIRTAZAPINE 30 MG TABLET PO SCH (20:05)
[2018-07-06] MEDS: ZOLPIDEM TARTRATE 10 MG TABLET PO PRN (21:06)
[2018-07-07 01:21] VITALS: BP 110/68
[2018-07-07 08:06] VITALS: BP 120/85
[2018-07-07] MEDS: DULoxetine HCL 60 MG CAPSULE PO SCH (08:16)
[2018-07-07] MEDS: FOLIC ACID 1 MG TABLET PO SCH (08:17)
[2018-07-07] MEDS: MULTIVITAMINS WITH MINERALS, THERAPEUTIC TABLET PO SCH (08:17)
[2018-07-07] MEDS: THIAMINE HCL 100 MG TABLET PO SCH ×2 (08:17→16:44)
[2018-07-07] MEDS: TAMSULOSIN HCL 0.4 MG CAPSULE PO SCH ×2 (08:17→16:44)
[2018-07-07 08:40] VITALS: BP 120/85
[2018-07-07] MEDS: LORazepam 1 MG TABLET PO PRN (11:17)
[2018-07-07 16:02] VITALS: BP 120/83
[2018-07-07] MEDS: MIRTAZAPINE 30 MG TABLET PO SCH (20:30)
[2018-07-08] MEDS: ACETAMINOPHEN 325 MG TABLET PO PRN ×3 (02:55→16:03)
[2018-07-08 02:56] VITALS: BP 110/68
[2018-07-08 08:11] VITALS: BP 141/75
[2018-07-08] MEDS: MULTIVITAMINS WITH MINERALS, THERAPEUTIC TABLET PO SCH (08:21)
[2018-07-08] MEDS: DULoxetine HCL 60 MG CAPSULE PO SCH (08:21)
[2018-07-08] MEDS: TAMSULOSIN HCL 0.4 MG CAPSULE PO SCH ×2 (08:21→16:32)
[2018-07-08] MEDS: FOLIC ACID 1 MG TABLET PO SCH (08:21)
[2018-07-08] MEDS: THIAMINE HCL 100 MG TABLET PO SCH ×2 (08:21→16:32)
[2018-07-08 10:19] VITALS: BP 132/76
[2018-07-08] MEDS: LORazepam 1 MG TABLET PO PRN (11:48)
[2018-07-08] MEDS: GABAPENTIN 100 MG CAPSULE PO SCH ×2 (12:45→16:32)
[2018-07-08 16:03] VITALS: BP 134/84
[2018-07-08] MEDS: MAG HYDROX/AL HYDROX/SIMETH ES 30 ML SUSPENSION UDCUP PO PRN (18:31)
[2018-07-08] MEDS: MIRTAZAPINE 30 MG TABLET PO SCH (20:31)
[2018-07-08] MEDS: ZOLPIDEM TARTRATE 10 MG TABLET PO PRN (21:29)
[2018-07-09 01:14] VITALS: BP 126/78
[2018-07-09] MEDS: ACETAMINOPHEN 325 MG TABLET PO PRN (06:55)
[2018-07-09] MEDS: LORazepam 1 MG TABLET PO PRN ×2 (06:56→12:46)
[2018-07-09] MEDS: MULTIVITAMINS WITH MINERALS, THERAPEUTIC TABLET PO SCH (08:10)
[2018-07-09] MEDS: DULoxetine HCL 60 MG CAPSULE PO SCH (08:10)
[2018-07-09] MEDS: GABAPENTIN 100 MG CAPSULE PO SCH ×3 (08:10→16:44)
[2018-07-09] MEDS: FOLIC ACID 1 MG TABLET PO SCH (08:10)
[2018-07-09] MEDS: THIAMINE HCL 100 MG TABLET PO SCH ×2 (08:10→16:43)
[2018-07-09] MEDS: TAMSULOSIN HCL 0.4 MG CAPSULE PO SCH ×2 (08:10→16:44)
[2018-07-09] MEDS: MAG HYDROX/AL HYDROX/SIMETH ES 30 ML SUSPENSION UDCUP PO PRN (08:18)
[2018-07-09 08:27] VITALS: BP 121/84
[2018-07-09 16:02] VITALS: BP 138/84
[2018-07-09] MEDS: MIRTAZAPINE 30 MG TABLET PO SCH (20:05)
[2018-07-09] MEDS: ZOLPIDEM TARTRATE 10 MG TABLET PO PRN (21:11)
[2018-07-10 04:50] VITALS: BP 121/68
[2018-07-10] MEDS: ACETAMINOPHEN 325 MG TABLET PO PRN (05:00)
[2018-07-10] MEDS: LORazepam 1 MG TABLET PO PRN ×3 (06:05→18:32)
[2018-07-10] MEDS: DULoxetine HCL 60 MG CAPSULE PO SCH (08:18)
[2018-07-10] MEDS: THIAMINE HCL 100 MG TABLET PO SCH ×2 (08:18→16:02)
[2018-07-10] MEDS: TAMSULOSIN HCL 0.4 MG CAPSULE PO SCH ×2 (08:18→16:02)
[2018-07-10] MEDS: GABAPENTIN 100 MG CAPSULE PO SCH ×3 (08:18→16:02)
[2018-07-10] MEDS: FOLIC ACID 1 MG TABLET PO SCH (08:18)
[2018-07-10] MEDS: MULTIVITAMINS WITH MINERALS, THERAPEUTIC TABLET PO SCH (08:18)
[2018-07-10 08:23] VITALS: BP 132/72
[2018-07-10] MEDS: MAG HYDROX/AL HYDROX/SIMETH ES 30 ML SUSPENSION UDCUP PO PRN ×2 (08:31→16:01)
[2018-07-10] MEDS ORDERED: MODAFINIL 100 MG TABLET PO SCH (09:00)
[2018-07-10] MEDS: LOPERAMIDE HCL 2 MG CAPSULE PO PRN ×3 (14:36→20:04)
[2018-07-10 16:05] VITALS: BP 140/84
[2018-07-10] MEDS: MIRTAZAPINE 30 MG TABLET PO SCH (20:03)
[2018-07-10] MEDS: ZOLPIDEM TARTRATE 10 MG TABLET PO PRN (21:00)
[2018-07-11 06:39] VITALS: BP 141/88
[2018-07-11] MEDS: ACETAMINOPHEN 325 MG TABLET PO PRN (06:41)
[2018-07-11 08:23] VITALS: BP 145/83
[2018-07-11] MEDS: MULTIVITAMINS WITH MINERALS, THERAPEUTIC TABLET PO SCH (08:23)
[2018-07-11] MEDS: GABAPENTIN 100 MG CAPSULE PO SCH ×3 (08:23→16:29)
[2018-07-11] MEDS: DULoxetine HCL 60 MG CAPSULE PO SCH (08:23)
[2018-07-11] MEDS: TAMSULOSIN HCL 0.4 MG CAPSULE PO SCH ×2 (08:23→16:28)
[2018-07-11] MEDS: MODAFINIL 100 MG TABLET PO SCH (08:23)
[2018-07-11] MEDS: ATENOLOL 50 MG TABLET PO SCH (09:31)
[2018-07-11 10:32] VITALS: BP 133/83
[2018-07-11] MEDS: LORazepam 1 MG TABLET PO PRN ×2 (12:24→16:29)
[2018-07-11 16:00] VITALS: BP 126/77
[2018-07-11] MEDS: MIRTAZAPINE 30 MG TABLET PO SCH (20:01)
[2018-07-11] MEDS: ZOLPIDEM TARTRATE 10 MG TABLET PO PRN (20:57)
[2018-07-12 01:00] VITALS: BP 112/77
[2018-07-12 08:11] VITALS: BP 119/72
[2018-07-12] MEDS: MULTIVITAMINS WITH MINERALS, THERAPEUTIC TABLET PO SCH (08:13)
[2018-07-12] MEDS: MODAFINIL 100 MG TABLET PO SCH (08:13)
[2018-07-12] MEDS: GABAPENTIN 100 MG CAPSULE PO SCH ×3 (08:14→16:24)
[2018-07-12] MEDS: DULoxetine HCL 60 MG CAPSULE PO SCH (08:14)
[2018-07-12] MEDS: TAMSULOSIN HCL 0.4 MG CAPSULE PO SCH ×2 (08:14→16:24)
[2018-07-12] MEDS: ATENOLOL 50 MG TABLET PO SCH (08:14)
[2018-07-12] MEDS: LORazepam 1 MG TABLET PO PRN ×2 (09:31→15:58)
[2018-07-12 16:04] VITALS: BP 138/85
[2018-07-12] MEDS: MIRTAZAPINE 30 MG TABLET PO SCH (20:06)
[2018-07-13 04:20] VITALS: BP 121/62
[2018-07-13] MEDS: ACETAMINOPHEN 325 MG TABLET PO PRN (04:50)
[2018-07-13] MEDS: LORazepam 1 MG TABLET PO PRN ×2 (06:21→12:35)
[2018-07-13 08:09] VITALS: BP 117/77
[2018-07-13] MEDS: TAMSULOSIN HCL 0.4 MG CAPSULE PO SCH ×2 (08:20→16:32)
[2018-07-13] MEDS: GABAPENTIN 100 MG CAPSULE PO SCH ×3 (08:20→16:32)
[2018-07-13] MEDS: MULTIVITAMINS WITH MINERALS, THERAPEUTIC TABLET PO SCH (08:20)
[2018-07-13] MEDS: ATENOLOL 50 MG TABLET PO SCH (08:20)
[2018-07-13] MEDS: DULoxetine HCL 60 MG CAPSULE PO SCH (08:20)
[2018-07-13] MEDS: MODAFINIL 100 MG TABLET PO SCH (08:20)
[2018-07-13] MEDS: MAGNESIUM HYDROXIDE SUSPENSION 30 ML UDCUP PO PRN (10:31)
[2018-07-13 16:05] VITALS: BP 110/69
[2018-07-13] MEDS: MIRTAZAPINE 30 MG TABLET PO SCH (20:10)
[2018-07-13] MEDS: ZOLPIDEM TARTRATE 10 MG TABLET PO PRN (22:08)
[2018-07-14] MEDS: ACETAMINOPHEN 325 MG TABLET PO PRN (04:06)
[2018-07-14 04:07] VITALS: BP 120/81
[2018-07-14] MEDS: LORazepam 1 MG TABLET PO PRN ×3 (05:16→17:03)
[2018-07-14 08:04] VITALS: BP 120/80
[2018-07-14] MEDS: MODAFINIL 100 MG TABLET PO SCH (08:42)
[2018-07-14] MEDS: DULoxetine HCL 60 MG CAPSULE PO SCH (08:42)
[2018-07-14] MEDS: TAMSULOSIN HCL 0.4 MG CAPSULE PO SCH ×2 (08:42→16:33)
[2018-07-14] MEDS: ATENOLOL 50 MG TABLET PO SCH (08:42)
[2018-07-14] MEDS: MULTIVITAMINS WITH MINERALS, THERAPEUTIC TABLET PO SCH (08:42)
[2018-07-14] MEDS: GABAPENTIN 100 MG CAPSULE PO SCH ×3 (08:43→16:33)
[2018-07-14] MEDS: MAG HYDROX/AL HYDROX/SIMETH ES 30 ML SUSPENSION UDCUP PO PRN ×2 (09:20→15:39)
[2018-07-14 16:00] VITALS: BP 129/75
[2018-07-14] MEDS: LOPERAMIDE HCL 2 MG CAPSULE PO PRN (19:14)
[2018-07-14] MEDS: MIRTAZAPINE 30 MG TABLET PO SCH (20:33)
[2018-07-14] MEDS: ZOLPIDEM TARTRATE 10 MG TABLET PO PRN (20:58)
[2018-07-15] MEDS: ACETAMINOPHEN 325 MG TABLET PO PRN (03:35)
[2018-07-15 03:36] VITALS: BP 126/78
[2018-07-15] MEDS: MAG HYDROX/AL HYDROX/SIMETH ES 30 ML SUSPENSION UDCUP PO PRN ×3 (06:27→17:55)
[2018-07-15 08:22] VITALS: BP 135/82
[2018-07-15] MEDS: MODAFINIL 100 MG TABLET PO SCH (08:27)
[2018-07-15] MEDS: DULoxetine HCL 60 MG CAPSULE PO SCH (08:27)
[2018-07-15] MEDS: TAMSULOSIN HCL 0.4 MG CAPSULE PO SCH ×2 (08:27→16:33)
[2018-07-15] MEDS: ATENOLOL 50 MG TABLET PO SCH (08:27)
[2018-07-15] MEDS: MULTIVITAMINS WITH MINERALS, THERAPEUTIC TABLET PO SCH (08:27)
[2018-07-15] MEDS: GABAPENTIN 100 MG CAPSULE PO SCH ×2 (08:27→12:46)
[2018-07-15] MEDS: LOPERAMIDE HCL 2 MG CAPSULE PO PRN (08:37)
[2018-07-15] MEDS: LORazepam 1 MG TABLET PO PRN ×2 (12:46→20:00)
[2018-07-15] MEDS ORDERED: BISACODYL 5 MG EC TABLET PO ONE (14:00)
[2018-07-15] MEDS: SIMETHICONE 80 MG CHEWABLE TABLET CHEW PRN ×2 (16:03→20:48)
[2018-07-15 16:06] VITALS: BP 144/89
[2018-07-15] MEDS ORDERED: LOPERAMIDE HCL 2 MG CAPSULE PO ONE ×2 (17:00)
[2018-07-15] MEDS ORDERED: GABAPENTIN 300 MG CAPSULE PO SCH (17:00)
[2018-07-15] MEDS ORDERED: LOPERAMIDE HCL 2 MG CAPSULE PO PRN ×2 (17:00)
[2018-07-15] MEDS: MIRTAZAPINE 30 MG TABLET PO SCH (20:30)
[2018-07-16 01:25] VITALS: BP 131/86
[2018-07-18] MEDS ORDERED: GABA-531 PO (16:14)
[2018-07-18] MEDS ORDERED: PANT40TA25 PO (16:15)
== END 2018-07-15 23:45 | disposition short-term general hospital (02) | DRG 885 ==
LOC: B2S 16:31 → B2X 18:27
PROVIDERS: ADMIT Psychiatry & Neurology Psychiatry; ATTEND Psychiatry & Neurology Psychiatry
DX: F33.2 Major depressive disorder, recurrent severe without psychotic features (principal); R45.851 Suicidal ideations; F41.9 Anxiety disorder, unspecified; F03.90 Unspecified dementia, unspecified severity, without behavioral disturbance, psychotic disturbance, mood disturbance, and anxiety; I10 Essential (primary) hypertension; N40.0 Benign prostatic hyperplasia without lower urinary tract symptoms; Z79.899 Other long term (current) drug therapy; Z91.19 Patient's noncompliance with other medical treatment and regimen
CPT/HCPCS: 83036; 84439; 84443; 86592

== ENCOUNTER 2018-07-19 20:45 | Emergency (ER) | payer MEDICARE ==
[~2018-07-19] VITALS: Ht 167.6 cm; Wt 80.5 kg
[~2018-07-19 20:45] MED LIST changes: +GABA-531 PO; +PANT40TA25 PO
[2018-07-19] MEDS ORDERED: LORazepam 1 MG TABLET PO ONE (22:15)
[2018-07-19] MEDS ORDERED: TraZODone HCL 50 MG TABLET PO ONE (22:30)
[2018-07-19 22:35] VITALS: BP 130/75
== END 2018-07-19 22:40 | disposition home or self-care (01) ==
LOC: EMS 20:45
DX: F41.9 Anxiety disorder, unspecified (principal); F32.9 Major depressive disorder, single episode, unspecified; Z76.0 Encounter for issue of repeat prescription; Z79.899 Other long term (current) drug therapy; Z90.49 Acquired absence of other specified parts of digestive tract